=== PATIENT | male | born 1995 | race Caucasian/White ===

== ENCOUNTER 2021-03-19 08:38 | Emergency (ER) | payer OTHER, SELFPAY ==
--- NOTE | ~2021-03-19 | XR_ITS ---
EXAMINATION: XR CHEST CLINICAL INFORMATION: Cough. Covid positive. COMPARISON: October 23, 2019 TECHNIQUE: AP portable view of the chest was obtained. FINDINGS: No significant abnormality is noted involving the heart, lungs, mediastinum, bony thorax or soft tissues. XR/XR chest 1V IMPRESSION: No acute disease.
[2021-03-19 08:45] VITALS: BP 164/88; PULSE 110; RESP 18; TEMP 37.6; O2SAT 97; BMI 28.0
--- NOTE | 2021-03-19 09:57 | ED.ASTHMA ---
HPI - Asthma General Chief Complaint: Dyspnea Stated Complaint: SOB covid+ Time Seen by Provider: 03/19/21 09:07 Source: patient Mode of arrival: ambulatory Limitations: no limitations History of Present Illness HPI Narrative: 25-year-old male with a past medical history of asthma who was recently diagnosed with COVID-19 on 03/17/2021 presenting to the ED with complaints of sore throat, chest congestion, intermittent productive cough and wheezing for the past 2 days. Reports that he is fully vaccinated to the COVID vaccine including his booster. He denies recent travel or sick contacts. He denies any fevers, dizziness, headaches, neck pain/stiffness, trouble swallowing, chest pain, dyspnea on exertion, orthopnea, palpitations, lower extremity edema, nausea/vomiting/diarrhea constipation, abdominal pain, back pain, rashes, dysuria or any other symptoms complaints or concerns at this time. Patient reports he does not have any albuterol inhalers and he does not have a nebulizer at home. MD complaint: asthma attack , shortness of breath and wheezing Onset (ago): day(s) (2) Severity: mild Context: other (Patient diagnosed with COVID on 03/17/2019 ) Associated symptoms: dry cough Asthma History: childhood onset Related Data Current Asthma Therapy: none Previous Rx's Medication Instructions Recorded ketoconazole 2 % topical cream 1 appl TOPICAL DAILY 21 Days #60 g 07/20/20 albuterol sulfate 0.63 mg/3 mL 0.63 mg (3 mL) INHALATION QID PRN 03/19/21 solution for nebulization #75 ml albuterol sulfate 90 mcg/actuation 1 inh INHALATION QID PRN #8.5 g 03/19/21 aerosol inhaler azithromycin 250 mg tablet See Rx Instructions PO .COMPLEX #6 03/19/21 tab codeine 10 mg-guaifenesin 100 mg/5 5 ml PO Q6H PRN #120 ml 03/19/21 mL oral liquid (Guaifenesin AC) nebulizers (AeroEclipse II #1 ea 03/19/21 Nebulizer) prednisone 20 mg tablet 40 mg PO DAILY 5 Days #10 tab 03/19/21 Allergies Allergy/AdvReac Type Severity Reaction Status Date / Time No Known Allergies Allergy Unverified 11/14/19 19:39 [No Known Allergies*] none Allergy Unknown Uncoded 05/28/18 00:00 Review of Systems Review of Systems: Constitutional : denies med noncompliance, no history of PE or DVT, denies recent travel, No Fever, No Chills ENT/Mouth : No Hoarseness, + sore throat, No Rhinorrhea, No Nasal congestion, No Sinus Pressure, No Ear Pain, No stridor, Eyes: No Redness, No Discharge, No Vision Changes Cardiovascular : No Chest Pain, + SOB, No Dyspnea on Exertion, No Edema, no pleurisy, Respiratory : + Cough, + wheezing, No Sputum, no stridor, no hemoptysis, Gastrointestinal : No Nausea, No Vomiting, No Diarrhea, No abdominal Pain Genitourinary : No Dysuria, No Hematuria Musculoskeletal : No joint pain/swelling, No Myalgias Extremities: no extremity swelling /pain Skin : No rash, no itching, no swelling Neuro : No Weakness, No Numbness, No Headache, No Dizziness, No Paresthesias Psych : No anxiety, depression Heme/Lymph: No Bruising, No Bleeding Endocrine : No Polyuria, No Polydipsia Yes all other systems are reviewed and are negative [facility] Past Medical History Attestation statement: The following information was validated with the patient. Medical History Asthma Social History Social History Advance Directives: No Advance Directives Information Provided: No Physical Exam Vital Signs: Vital Signs: Last Vital Signs Temp 99.6 F 03/19/21 08:45 Pulse 110 H 03/19/21 08:45 Resp 18 03/19/21 08:45 BP 164/88 H 03/19/21 08:45 Pulse Ox 97 03/19/21 08:45 BMI result Body Mass Index 28.0 vital signs have been reviewed Blood pressure 164/88. Heart rate 110. Respiration normal. Oxygen saturation normal. Appearance: Alert. Oriented X3. No acute distress. Head: Normal external exam. Normocephalic. Atraumatic. Eyes: PERRLA. EOMI. Conjunctiva and sclera normal. Eyelids normal. ENT: EAC normal. TM's Normal. Pharynx normal. Uvula midline. Moist mucous membranes. No trismus noted. No drooling noted. No muffled voice noted. No stridor noted. Patient tolerating secretions well. Neck: Normal inspection. Neck supple. FROM. No adenopathy. Thyroid Normal. No meningeal signs. No neck mass noted. CVS: Normal heart rate and rhythm. Heart sound normal. Pulses normal throughout. No murmurs/rales/gallops. Respiratory: No respiratory distress. Painless inspiration. Breath sounds normal. No wheezes/rales/rhonchi noted. Chest nontender. No accessory muscle usage noted or decreased air movement noted. Normal chest excursions noted. Abdomen: Soft and nontender. Bowel sounds normal in all 4 quadrants. No distention noted. No organomegaly noted. No visible injury noted. Back: No CVA tenderness. Full range of motion noted. No rashes/lesion/induration/fluctuance or signs of infection noted. Skin: Skin warm and dry. Normal skin color. Normal skin turgor. No rashes/lesions/lacerations noted. Extremities: No lower extremity edema. No calf tenderness noted. Extremities exhibit normal range of motion. Extremities nontender. Neuro: Oriented X 3. No motor deficit. No sensory deficit. Reflexes normal. Normal steady gait. No focal neuro deficits noted. Vascular: + radial pulses/+ 2 distal pedal pulses/+2 dorsalis pedis b/l. Normal cap refill. No cyanosis noted to upper extremity nails and lower extremity toes nails. Course Course Course Narrative: 25-year-old male with a past medical history of asthma who was recently diagnosed with COVID-19 on 03/17/2021 presenting to the ED with complaints of sore throat, chest congestion, intermittent productive cough and wheezing for the past 2 days. Reports that he is fully vaccinated to the COVID vaccine including his booster. Patient reports he does not have any albuterol inhalers and he does not have a nebulizer at home. On exam patient is alert and oriented x3. Mildly tachycardic at 110 otherwise all other vitals are within normal limits saturating at 97% on room air. Lungs clear to auscultation. Abdomen is soft and nontender. No lower extremity edema or calf tenderness is noted. Chest x-ray is negative. Therefore at this time will DC home with symptomatic treatment instructions to follow up with primary care provider and to self isolate per CDC guidelines and to return if any new or worsening symptoms. Patient understands agrees with this plan. [facility] - Asthma Medical Records Attestation: I reviewed the patient's medical records. Imaging Data Chest x-ray: Attestation: I personally reviewed and interpreted this imaging study as follows: Radiologist's impression: FINDINGS: No significant abnormality is noted involving the heart, lungs, mediastinum, bony thorax or soft tissues. XR/XR chest 1V IMPRESSION: No acute disease. Discharge Plan Discharge Clinical Impression: Asthma with exacerbation, COVID-19, Acute bronchitis with bronchospasm Patient Disposition: Home, Self-Care Instructions: Asthma (ED), Acute Bronchitis (ED), COVID-19 (Coronavirus Disease 2019) (ED) Additional Instructions: Please follow CDC guidelines for COVID 19 restrictions Prescriptions: New azithromycin 250 mg tablet See Rx Instructions PO .COMPLEX Qty: 6 RF: 0 prednisone 20 mg tablet 40 mg PO DAILY 5 Days Qty: 10 RF: 0 (DME) AeroEclipse II Nebulizer Misc See Rx Instructions .ROUTE .MEDSUPPLY Qty: 1 RF: 0 albuterol sulfate 0.63 mg/3 mL solution for nebulization 0.63 mg inhalation QID PRN (Reason: shortness of breath or wheezing) Qty: 75 RF: 0 albuterol sulfate 90 mcg/actuation HFA aerosol inhaler 1 inh inhalation QID PRN (Reason: shortness of breath or wheezing) Qty: 8.5 RF: 0 codeine-guaifenesin [Guaifenesin AC] 10-100 mg/5 mL liquid 5 ml PO Q6H PRN (Reason: cold symptoms) Qty: 120 RF: 0 No Action ketoconazole 2 % cream 1 appl topical DAILY 21 Days Qty: 60 RF: 0 Referrals: Physician,Unknown J [Primary Care Provider] - 2 days (your pcp) Stand Alone Forms: Work/School Release Print Language: Cymro
== END 2021-03-19 10:29 | disposition home or self-care (01) ==
PROVIDERS: Emergency Provider Emergency Medicine Emergency Medical Services
DX: U07.1 COVID-19 (principal); J20.9 Acute bronchitis, unspecified; J45.901 Unspecified asthma with (acute) exacerbation
CPT/HCPCS: 71045; 99283

== ENCOUNTER 2021-12-13 09:39 | Outpatient (REF) | payer OTHER, SELFPAY ==
--- NOTE | ~2021-12-13 | XR_ITS ---
EXAMINATION: XR CHEST CLINICAL INFORMATION: Post Covid 19. COMPARISON: Prior chest February 2021 TECHNIQUE: 2 views of the chest were obtained. FINDINGS: No significant abnormality is noted involving the heart, lungs, mediastinum, bony thorax or soft tissues. XR/XR chest 2V IMPRESSION: Unremarkable examination.
== END 2021-12-13 09:40 | disposition home or self-care (01) ==
LOC: HO.HMGCX 09:39
PROVIDERS: Visit Provider Physician Assistant
DX: U09.9 Post COVID-19 condition, unspecified (principal); J45.40 Moderate persistent asthma, uncomplicated
CPT/HCPCS: 71046

== ENCOUNTER → 2021-12-27 14:04 | Outpatient (BNVA) | payer OTHER, SELFPAY | PROVIDERS: PCP Internal Medicine; Visit Provider Internal Medicine Pulmonary Disease | DX: Z91.09 Other allergy status, other than to drugs and biological substances (principal); J45.909 Unspecified asthma, uncomplicated; G47.33 Obstructive sleep apnea (adult) (pediatric); U09.9 Post COVID-19 condition, unspecified | CPT/HCPCS: 99202 ==

== ENCOUNTER → 2022-02-01 12:33 | Outpatient (REF) | payer OTHER, SELFPAY ==
--- NOTE | ~2022-02-01 | CT_ITS ---
EXAMINATION: CT CHEST WITHOUT CONTRAST CLINICAL INFORMATION: Post COVID-19 condition. COMPARISON: None. TECHNIQUE: Multidetector volumetric CT imaging of the chest was done. Axial MIP volume rendering provided. Sagittal and coronal reformatted images were obtained. This CT examination was performed using dose optimization techniques as appropriate, variously including the following: *Automated exposure control *Adjustment of mA and/or kV according to patient size (this includes techniques or standardized protocols for targeted exams where dose is matched to indication/reason for exam; i.e. extremities or head) *Use of iterative reconstruction technique DLP: 207 mGy-cm. FINDINGS: TRANSPORTATION INSPECTOR: Unremarkable. LUNGS: The lungs are well expanded and clear of acute pneumonic process. There is a patchy subpleural opacity in the lingula on sagittal image 21/6. There are no pulmonary nodules, mass, consolidation or ground-glass density. There is no bronchiectasis, bronchial wall thickening or interstitial thickening. MEDIASTINUM: The thyroid lobes are symmetrical and normal. The central trachea and the bronchi widely patent. There is residual thymus seen in the anterior mediastinum. Heart size and the great vessels are normal caliber. There is no pericardial effusion. CORONARY ARTERY CALCIFICATION: None visualized on this study. PLEURA: There is no pleural effusion. No pleural mass or thickening. AXILLA: Small shotty lymph nodes are seen in bilateral axilla. UPPER ABDOMEN: Visualized liver, spleen, pancreas and bilateral adrenal glands are unremarkable. OSSEOUS STRUCTURES: No aggressive lytic or sclerotic process seen. CT/CT chest wo IV con IMPRESSION: Focal atelectatic changes in the lingula. Otherwise unremarkable CT chest exam. Fleischner guidelines were followed.
--- NOTE | 2022-02-01 17:07 | PFT_ITS ---
Forced vital capacity 96%, FEV1 97%, FEV1/FVC ratio is 84, CFV75-91 99%, and MVV 95%. Post bronchodilator therapy, there is no change. Total lung capacity is 93%. Residual volume is 70%. Diffusion capacity is 83% CONCLUSION: Normal pulmonary function test, and there is no evidence of any obstructive or restrictive pulmonary disorder. MD ASTON Wren/JAMIE / [id number]
== END ==
LOC: HO.SL 12:33
PROVIDERS: PCP Internal Medicine; Visit Provider Internal Medicine Pulmonary Disease
DX: G47.33 Obstructive sleep apnea (adult) (pediatric) (principal); U09.9 Post COVID-19 condition, unspecified; J45.909 Unspecified asthma, uncomplicated
CPT/HCPCS: 71250; 94060; 94727; 94729

== ENCOUNTER → 2022-03-24 10:42 | Outpatient (BNVA) | payer OTHER, SELFPAY | PROVIDERS: PCP Internal Medicine; Visit Provider Internal Medicine Pulmonary Disease | DX: J45.909 Unspecified asthma, uncomplicated (principal); Z91.09 Other allergy status, other than to drugs and biological substances | CPT/HCPCS: 99212 ==

== ENCOUNTER 2024-05-15 08:49 | Outpatient (AMB) | payer OTHER, SELFPAY ==
[2024-05-15 09:06] VITALS: BP 138/86; PULSE 114; TEMP 36.8; O2SAT 97; BMI 33.6
--- NOTE | 2024-05-15 09:06 | AM.OFFWIN_ITS ---
Intake Vital Signs 05/15/24 09:06 Height 5 ft 11 in Weight 241 lb 4 oz BMI 33.6 BP 138/86 Blood Pressure Location Lt brachial Position Sitting Pulse 114 H Pulse Source Pulse Oximeter Temp 98.2 F Temp Source Oral Pulse Oximetry (%) 97 Oxygen Delivery Method Room Air Intake Visit Reasons: EP-rt side abd pain Intake Note: Pt presents to the office today for c/o right sided abdominal pain and pressure x1 month and yesterday he had an episode of a 4/10 discomfort pain. Pt denies any uriinary symptoms. Patient Tobacco Use Status: Former Tobacco user Allergies azithromycin Allergy (Intermediate, Verified 05/15/24 09:09) Rash HPI EP-rt side abd pain HPI Details This is a 28-year-old male patient who presents to the walk-in clinic today with a one-month history of right lower abdominal pressure/pain. He states this is persistent, and is typically a 3-4/10 on the pain scale. He denies any vomiting, however occasionally has episodes of nausea. Denies any constipation or diarrhea. Denies any fever or chills. States he has felt mildly lethargic. He states he has also had a mildly productive cough for several months. He reports a slight increase in this pressure sensation after eating, however denies any pain associated with eating fatty/greasy foods. Able to tolerate a normal diet. Dysuria or flank pain. [facility] Medical History Asthma Social History Housing: House Patient Tobacco Use Status: Former Tobacco user e-Cigarette/Vaping Use: Never Used service: No Current occupational status: employed Cognitive needs: No Hearing needs: No Vision needs: No Review of Systems Const All systems reviewed & are unremarkable except as noted in HPI and below Physical Exam Vital Signs: Last Vital Signs Temp 98.2 F 05/15/24 09:06 Pulse 114 H 05/15/24 09:06 BP 138/86 05/15/24 09:06 Pulse Ox 97 05/15/24 09:06 Oxygen Delivery Method Room Air 05/15/24 09:06 BMI result Body Mass Index 33.6 Const General: cooperative, healthy appearing, comfortable and no acute distress Nutritional Appearance: obese Limitations: no limitations HEENT Head: Yes normal to inspection Ears: hearing grossly normal bilaterally Neck Neck: Yes no lymphadenopathy Resp Effort & Inspection: normal respiratory effort Auscultation: clear to auscultation bilaterally Cardio Rate: regular rate Rhythm: regular rhythm Heart sounds: S1 normal heart sound present and S2 normal heart sound present GI Other: no rebound tenderness, negative Leary's Inspection: Yes obesity Palpation (GI): Soft to palpation, Tenderness to palpation present (GI) in the RLQ and No hepatosplenomegaly present Percussion: Yes normal to percussion Auscultation: normal bowel sounds Rectal Exam - Male: Yes deferred General: Yes no CVA tenderness Back/Spine/Pelvis Back: no CVA tenderness Skin General skin exam: no rashes or lesions noted Extrem General: Yes capillary refill normal and Yes no clubbing, cyanosis or edema Psych Appearance: grossly normal Mental Status: mental status grossly normal Speech and movement: Normal speech and movement present Results AMB Urinalysis, Automated UA Leukoctes 0 Jam/uL Last Edit by Prema Cadet CMA on 05/15/24 09:25 UA Nitrite Negative Last Edit by Prema Cadet CMA on 05/15/24 09:25 UA Urobilinogen 0.2 mg/dL Last Edit by Prema Cadet CMA on 05/15/24 09:25 UA Protein 15 mg/dL Last Edit by Prema Cadet CMA on 05/15/24 09:25 UA pH 6.0 Last Edit by Prema Cadet CMA on 05/15/24 09:25 UA Blood 10 [place]/uL Last Edit by Prema Cadet CMA on 05/15/24 09:25 UA Specific [place] 1.020 Last Edit by Prema Cadet CMA on 05/15/24 09:25 UA Ketone Negative Last Edit by Prema Cadet CMA on 05/15/24 09:25 UA Bilirubin 0 mg/dL Last Edit by Prema Cadet CMA on 05/15/24 09:25 UA Glucose 0 mg/dL Last Edit by Prema Cadet CMA on 05/15/24 09:25 Assessment & Plan Assessment & Plan (1) Right lower quadrant abdominal pain: Code(s): R10.31 - Right lower quadrant pain Plan: Patient with a one-month history of dull right lower quadrant pain/pressure. Has an intermittent cough and occasional nausea. He has some mild right lower quadrant tenderness to palpation. Negative Leary's. No rebound TTP. Symptoms could represent a GERD - will try on a short course of omeprazole. Reviewed indications, use with patient. I was able to schedule an appointment with his PCP, Dr. Segura, for this Monday for further workup as needed. We discussed that if he develops any fever or worsening/severe pain, he should go to the ED for evaluation. He agrees to plan. (2) Asthma: Code(s): J45.909 - Unspecified asthma, uncomplicated Qualifiers: Asthma severity: mild Asthma persistence: intermittent Asthma complication type: uncomplicated Qualified Code(s): J45.20 - Mild intermittent asthma, uncomplicated Plan: Patient requested albuterol refill - snet Orders: Orders AMB Urinalysis Automated Today Z13.9 - Encounter for screening, unspecified Medications: New omeprazole Take one capsule daily 10 mg PO DAILY 10 caps 0RF K21.9 - Gastro-esophageal reflux disease without esophagitis Refilled albuterol sulfate 90 mcg/actuation 1 inh inhalation QID PRN 8.5 grams 0RF shortness of breath or wheezing J45.909 - Unspecified asthma, uncomplicated Coding Level of Care Code Est Pt Level 4 (92756) Diagnoses Right lower quadrant abdominal pain R10.31 Mild intermittent asthma without complication J45.20 Asthma severity: mild Asthma persistence: intermittent Asthma complication type: uncomplicated
--- OUTSIDE RECORDS SUMMARY | 2024-05-15 09:42 | XMS_ITS | Encounter Summary ---
Author Organization [facility] Address [address] [place] [id number] Phone Care Team Providers Care Armhole Feller Handstitching Machine Name Role Phone Pranav Orr MD Primary Care Provider [phone] Encounter Details Date Type Department Care Team (Late st Contact Info) Description 08/09/2010 Conversion Encounter [facility] [address] [place] [id number] Social History Tobacco Use Types Packs/Day Years Used Date Smoking Tobacco: Never Assessed Sex and Gender Information Value Date Recorded Sex Assigned at Not on file Legal Sex Male 6:13 PM EDT Gender Identity Not on file Sexual Orientation Not on file documented as of this encounter Plan of Treatment Not on file documented as of this encounter Visit Diagnoses Not on filedocumented in this encounter Care Teams Armhole Feller Handstitching Machine Relationship Specialty Start Date End Date Pranav Orr MD [facility] [address] [place] [id number] PCP - General 07/05/17 documented as of this encounter
--- OUTSIDE RECORDS SUMMARY | 2024-05-15 09:42 | XMS_ITS | Clinical Summary ---
Author Organization [facility] Address [address] [place] [id number] Phone Care Team Providers Care Horticultural Therapist Name Role Phone Pranav Orr MD Primary Care Provider [phone] Immunizations Immunization Administration Dates Next Due DTaP 5 10/31/2002, 0,05/22/1998, 999,01/14/1998 Hep A, ped/adol 03/22/2016,12/22/2014 Hep B, ped/adol 05/22/1998,01/14/1998,1997 Hib (PRP-T) 03/02/1999, 9,03/20/1998, 998 IPV 10/31/2002, 0,03/20/1998, 998 MMR 10/31/2002,11/17/1998 Meningococcal Conj (Menactra) MCV4P 12/22/2014,1 Tdap 12/22/2009 Varicella 12/22/2009,11/17/1998 Social History Tobacco Use Types Packs/Day Years Used Date Smoking Tobacco: Never Comments:Never Smoker Sex and Gender Information Value Date Recorded Sex Assigned at Not on file Legal Sex Male 6:13 PM EDT Gender Identity Not on file Sexual Orientation Not on file Last Filed Vital Signs Vital Sign Reading Time Taken Comments Blood Pressure - - Pulse 80 02/28/2017 2:48 PM EST Temperature 37.3 ??C (99.2 ??F) 06/29/2017 1:41 PM ED T Respiratory Rate - - Oxygen Saturation 99% 05/26/2014 1:59 PM EDT Inhaled Oxygen Concentration - - Weight 68.9 kg (151 lb 14.4 oz) 06/29/2017 1:41 PM EDT Height 180.3 cm (5' 11 ) 06/29/2017 1:41 PM EDT Body Mass Index 21.19 06/29/2017 1:41 PM EDT Plan of Treatment Health Maintenance Due Date Last Done Comments HPV Vaccines (1 - Male 3-dose series) 2012 DTaP,Tdap,and Td Vaccines (7 - Td or Tdap) 12/23/2019 12/22/2009, 10/31/2002, 06/02/1999, Additional history exists Influenza Vaccines (#1) 2023 COVID-19 Vaccine ( - season) 2023 Hepatitis B Vaccines Completed 05/22/1998, 01/14/1998, 1997 HIB Vaccines Completed 03/02/1999, 04/28, 03/20/1998, Additional history exists IPV Vaccines Completed 10/31/2002, 06/1999, 03/20/1998, Additional history exists MMR Vaccines Completed 10/31/2002, 11/17/1998 Varicella Vaccines Completed 12/22/2009, 11/17/1998 Meningococcal Vaccine Completed 12/22/2014, 010 Hepatitis A Vaccines Completed 03/22/2016, 12/23/19 15 Men B Vaccine Aged Out No longer elig ible based on patient's age to complete this topic Pneumococcal Vaccine Aged Out No long er eligible based on patient's age to complete this topic Insurance [facility] OTHER O [facility] Care Teams Horticultural Therapist Relationship Specialty Start Date End Date Pranav Orr MD [address] [place] [address] [place] [address] PCP - General 07/05/17
== END 2024-05-15 09:47 | disposition home or self-care (01) ==
PROVIDERS: PCP Internal Medicine; Visit Provider Nurse Practitioner Family
DX: R10.31 Right lower quadrant pain (principal); J45.20 Mild intermittent asthma, uncomplicated; Z13.9 Encounter for screening, unspecified

== ENCOUNTER → 2024-05-15 08:49 | Outpatient (BNVA) | payer OTHER, SELFPAY | PROVIDERS: PCP Internal Medicine; Visit Provider Nurse Practitioner Family | DX: R10.31 Right lower quadrant pain (principal); J45.20 Mild intermittent asthma, uncomplicated | CPT/HCPCS: 81003 ==

== ENCOUNTER 2024-05-17 15:38 | Outpatient (AMB) | payer OTHER, SELFPAY ==
[2024-05-17 15:43] VITALS: BP 138/82; PULSE 112; O2SAT 98; BMI 33.8
--- NOTE | 2024-05-17 15:43 | MHC.PC.OV ---
Vital Signs 05/17/24 15:43 Height 5 ft 11 in Weight 242 lb 8 oz BMI 33.8 BP 138/82 Blood Pressure Location Lt brachial Position Sitting Pulse 112 H Pulse Source Pulse Oximeter Pulse Oximetry (%) 98 Oxygen Delivery Method Room Air Intake Visit Reasons: Walk In [facility] 05/15 Allergies azithromycin Allergy (Intermediate, Verified 05/17/24 15:43) Rash Medication List - Last Reconciled 05/17/24 by Bao Segura MD albuterol sulfate 90 mcg/actuation 1 inh inhalation QID PRN omeprazole 10 mg PO DAILY Tobacco use date assessed: 05/17/24 Dental Screening Dental Screen Date: 05/17/24 Did you have a dental problem in the last 6 months where you did not have access to dental care?: No HPI Walk In [facility] 05/15 HPI Details History - The patient is a 28-year-old male presenting with right upper abdominal pressure and pain. - Symptoms initiated approximately three days ago, characterized by intermittent pressure and occasional pain in the right lower quadrant. - Discomfort tends to increase as the day progresses and is aggravated by sitting in certain positions. - Larger meal consumption seems to exacerbate the pain, though no consistent pattern with eating times is identified. - Currently prescribed omeprazole for suspected GERD through urgent care patient presented with coughing He has a history of asthma as well and currently taking albuterol inhaler only but reports no change in abdominal symptoms since starting the omeprazole. - Has a significant family history of gallbladder disease. Problem List - Asthma - Gastroesophageal Reflux Disease (GERD) - obesity with BMI of 33.8 Patient Instructions - Avoid consuming fatty foods. - Complete the fasting blood test as instructed at the laboratory next door. - Schedule a follow-up appointment for a physical examination in two to three weeks. - Be attentive to any new or worsening symptoms and seek care as needed. Review of Systems - General: No fever no chills - Neurological: No headaches no dizziness - Ear nose throat: No sore throat no hearing difficulty no ear pain - Cardiovascular: No syncope, no chest pain, no palpitations - Gastrointestinal: No nausea vomiting or diarrhea - Endocrine: No polyuria polydipsia no heat intolerance - Genitourinary: No dysuria , no blood in urine Physical Exam General: No acute distress HEENT: No acute findings Neck: Supple Respiratory system: Able to talk in full sentences, no audible wheeze cardiovascular: S1-S2 regular in rate and rhythm Gastrointestinal: Right upper abdominal discomfort with deep pressure, no guarding no rebound Extremities: No new findings EXCELSIOR PICKER: Alert awake oriented x3 motor sensory intact Skin: Normal turgor [facility] Medical History Asthma Social History Housing: House Patient Tobacco Use Status: Former Tobacco user e-Cigarette/Vaping Use: Never Used service: No Current occupational status: employed Cognitive needs: No Hearing needs: No Vision needs: No Questionnaire PHQ-9 Over the last 2 weeks, how often have you been bothered by any of the following problems? 1. Little interest or pleasure in doing things: not at all 2. Feeling down, depressed, or hopeless: not at all 3. Trouble falling or staying asleep, or sleeping too much: not at all 4. Feeling tired or having little energy: several days 5. Poor appetite or overeating: not at all 6. Feeling bad about yourself - or that you are a failure or have let yourself or your family down: not at all 7. Trouble concentrating on things, such as reading the newspaper or watching television: not at all 8. Moving or speaking so slowly that other people could have noticed. Or the opposite - being so fidgety or restless that you have been moving around a lot more than usual: not at all 9. Thoughts that you would be better off or of hurting yourself in some way: not at all Total score: 1 Depression Screening Interpretation: Negative Depression Screening Done: Yes 02628 - PHQ-9 Billing: Yes Source: Developed by Drs. Bi Chan, Tressa Johsi, Charles Camargo and colleagues, with an educational gianluca from [employer]. Thrive Questionnaire Date Thrive assessed: 05/17/24 I am a: Patient What is your living situation today?: I have a steady place to live Within the past 12 months, did the food you bought not last and you didn't have the money to get more?: Never true Within the past 12 months, did you worry whether your food would run out before you got money to buy more?: Never true Do you have trouble paying for medicines?: No Do you have trouble getting transportation to medical appointments?: No Do you have trouble paying your heating and electricity bill?: No Do you have trouble taking care of your child, family member or friend?: No Do you have trouble with day-to-day activities such as bathing, preparing meals, shopping, managing finances, etc.?: No Are you currently unemployed and looking for a job?: No Are you interested in more education?: I choose not to answer this question Please select the resources that you would like help with: None Currently or been in a relationship where the following occur: No concerns reported THRIVE Score: 0 AUDIT C Alcohol Use Questionnaire (AUDIT-C) 1. How often do you have a drink containing alcohol?: Monthly or less 2. How many drinks containing alcohol do you have on a typical day when you are drinking?: 3 or 4 3. How often do you have six or more drinks on one occasion?: Never Total Score: 2 Score Reviewed/Action Taken: Yes JOVANNY-7 AMB Questionnaire JOVANNY-7 Date JOVANYN - 7 assessed: 05/17/24 Feeling nervous, anxious, or on edge: 0 = Not at all Not being able to stop or control worryin = Not at all Worrying too much about different things: 0 = Not at all Trouble relaxin = Not at all Being so restless that it is hard to sit still: 0 = Not at all Becoming easily annoyed or irritable: 0 = Not at all Feeling afraid as if something awful might happen: 0 = Not at all Total JOVANNY-7 score (0-4 normal; 5-9 mild; 10-14 moderate; 15-21 severe): 0 Source: Developed by Drs. Bi Chan, Tressa Joshi, Charles Camargo and colleagues, with an educational gianluca from [employer]. JOVANNY-7 Assessment Billing JOVANNY-7 Assessment Tool: JOVANNY-7 Assessment 46316 Physical exam (Primary Care) Vital Signs: Last Vital Signs Pulse 112 H 05/17/24 15:43 BP 138/82 05/17/24 15:43 Pulse Ox 98 05/17/24 15:43 Oxygen Delivery Method Room Air 05/17/24 15:43 BMI result Body Mass Index 33.8 Tobacco/Smoking Status: Tobacco use Status Tobacco use date assessed 05/17/24 05/17/24 15:46 Patient Tobacco Use Status Former Tobacco user 05/17/24 15:46 e-Cigarette/Vaping Use Never Used 05/17/24 15:46 PHQ-9: PHQ-9 Score PHQ-9: Total score 1 05/17/24 15:46 Depression Screening Interpretation: Negative Thrive Assessment: Date of Thrive Assessment Date Thrive assessed 05/17/24 05/17/24 15:46 Currently or been in a relationship where the following occur: No concerns reported Coding Level of Care Code Est Pt Level 4 (72937) Diagnoses Right upper quadrant pain R10.11 Mild intermittent asthma without complication J45.20 Asthma severity: mild Asthma complication type: uncomplicated Class 1 obesity due to excess calories without serious comorbidity with body mass index (BMI) of 33.0 to 33.9 in adult E66.811; E66.09; Z68.33 Obesity classification: adult class 1 (BMI 30 - 34.9) Serious obesity comorbidity presence: without serious comorbidity Body mass index: BMI 33.0-33.9 Additional Codes JOVANNY-7 Assessment Billing - JOVANNY-7 Assessment Tool: JOVANNY-7 Assessment 53505 ([id number]) PHQ-9 - 93047 - PHQ-9 Billing: Yes ([id number]) Assessment & Plan Assessment & Plan (1) Right upper quadrant pain: Code(s): R10.11 - Right upper quadrant pain Category: Medical (2) Asthma, intermittent: Code(s): J45.20 - Mild intermittent asthma, uncomplicated Category: Medical Qualifiers: Asthma severity: mild Asthma complication type: uncomplicated Qualified Code(s): J45.20 - Mild intermittent asthma, uncomplicated (3) Obesity due to excess calories: Code(s): E66.09 - Other obesity due to excess calories Category: Medical Qualifiers: Obesity classification: adult class 1 (BMI 30 - 34.9) Serious obesity comorbidity presence: without serious comorbidity Body mass index: BMI 33.0-33.9 Qualified Code(s): E66.811 - Obesity, class 1; E66.09 - Other obesity due to excess calories; Z68.33 - Body mass index [BMI] 33.0-33.9, adult Plan History - The patient is a 28-year-old male presenting with right upper abdominal pressure and pain. - Symptoms initiated approximately three days ago, characterized by intermittent pressure and occasional pain in the right lower quadrant. - Discomfort tends to increase as the day progresses and is aggravated by sitting in certain positions. - Larger meal consumption seems to exacerbate the pain, though no consistent pattern with eating times is identified. - Currently prescribed omeprazole for suspected GERD through urgent care patient presented with coughing He has a history of asthma as well and currently taking albuterol inhaler only but reports no change in abdominal symptoms since starting the omeprazole. - Has a significant family history of gallbladder disease. Problem List - Asthma - Gastroesophageal Reflux Disease (GERD) - obesity with BMI of 33.8 Patient Instructions - Avoid consuming fatty foods. - Complete the fasting blood test as instructed at the laboratory next door. - Schedule a follow-up appointment for a physical examination in two to three weeks. - Be attentive to any new or worsening symptoms and seek care as needed. Orders: Orders Lipid Panel Today E66.09 - Other obesity due to excess calories, E66.811 - Obesity, class 1, J45.20 - Mild intermittent asthma, uncomplicated, R10.11 - Right upper quadrant pain, Z68.33 - Body mass index [BMI] 33.0-33.9, adult US abdomen complete Today R10.11 - Right upper quadrant pain Complete Blood Count Auto Diff Today E66.09 - Other obesity due to excess calories, E66.811 - Obesity, class 1, J45.20 - Mild intermittent asthma, uncomplicated, R10.11 - Right upper quadrant pain, Z68.33 - Body mass index [BMI] 33.0-33.9, adult Comprehensive [place]. Panel Fast Today E66.09 - Other obesity due to excess calories, E66.811 - Obesity, class 1, J45.20 - Mild intermittent asthma, uncomplicated, R10.11 - Right upper quadrant pain, Z68.33 - Body mass index [BMI] 33.0-33.9, adult TSH reflex Free T4 Today E66.09 - Other obesity due to excess calories, E66.811 - Obesity, class 1, J45.20 - Mild intermittent asthma, uncomplicated, R10.11 - Right upper quadrant pain, Z68.33 - Body mass index [BMI] 33.0-33.9, adult
--- OUTSIDE RECORDS SUMMARY | 2024-05-17 17:24 | XMS_ITS | Encounter Summary ---
Author Organization [facility] Address [address] [place] [address] Phone Care Team Providers Care Kitchen Clerk Name Role Phone Pranav Orr MD Primary Care Provider [phone] Encounter Details Date Type Department Care Team (Late st Contact Info) Description 08/09/2010 Conversion Encounter [facility] [address] [place] [id number] Social History Tobacco Use Types Packs/Day Years [...] on filedocumented in this encounter Care Teams Kitchen Clerk Relationship Specialty Start Date End Date Pranav Orr MD [facility] [address] [place] [address] PCP - General 07/05/17 documented as of this encounter
--- OUTSIDE RECORDS SUMMARY | 2024-05-17 17:24 | XMS_ITS | Clinical Summary ---
Author Organization [facility] Address [address] [place] [address] Phone Care Team Providers Care Cream Cheese Maker Name Role Phone Pranav Orr MD Primary Care Provider [phone] Immunizations Immunization Administration Dates Next Due DTaP [...] patient's age to complete this topic Insurance [facility] OTHER O [facility] Care Teams Cream Cheese Maker Relationship Specialty Start Date End Date Pranav Orr MD [address] [place] [address] [place] [address] PCP - General 07/05/17
== END 2024-05-17 16:02 | disposition home or self-care (01) ==
LOC: HO.HMCC 15:39
PROVIDERS: PCP Internal Medicine; Visit Provider Internal Medicine
DX: R10.11 Right upper quadrant pain (principal); J45.20 Mild intermittent asthma, uncomplicated; E66.811 Obesity, class 1; E66.09 Other obesity due to excess calories; Z68.33 Body mass index [BMI] 33.0-33.9, adult

== ENCOUNTER → 2024-05-17 15:38 | Outpatient (BNVA) | payer OTHER, SELFPAY | PROVIDERS: PCP Internal Medicine; Visit Provider Internal Medicine | DX: R10.11 Right upper quadrant pain (principal); J45.20 Mild intermittent asthma, uncomplicated; E66.811 Obesity, class 1; E66.09 Other obesity due to excess calories; Z68.33 Body mass index [BMI] 33.0-33.9, adult | CPT/HCPCS: 96127 ==

== ENCOUNTER 2024-05-25 11:04 | Outpatient (REF) | payer OTHER, SELFPAY ==
[2024-05-25 13:34] LABS: MANUAL DIFF FLAG NO
[2024-05-25 13:42] LABS: Basophils Percent Auto 0.2 % (0-2); Eosinophils Absolute Auto 0.1 X10*3/uL (0.0-0.4); Eosinophils Percent Auto 1.6 % (0-4); Hematocrit 44.8 % (42.0-52.0); Hemoglobin 15.5 g/dl (14.0-18.0); Imm Gran Abs Auto 0.03 X10*3/uL (0.00-0.03); Imm Gran Pct Auto 0.4 % (0.0-0.4); Lymphocytes Absolute Auto 3.2 X10*3/uL (1.2-4.9); Lymphocytes Percent Auto 39.1 % (20-40); Mean Corpuscular HGB Conc 34.6 g/dl (31.0-36.0); Mean Corpuscular Hemoglobin 30.7 pg (27.0-33.0); Mean Corpuscular Volume 88.7 fL (80.0-98.0); Mean Platelet Volume 9.6 fL (9.4-12.4); Monocytes Absolute Auto 0.6 X10*3/uL (0.1-1.2); Monocytes Percent Auto 7.3 % (2-11); Neutrophils Absolute Auto 4.1 x10*3/uL (2.0-8.3); Neutrophils Percent Auto 51.4 % (45-73); Platelet Count 297 X10*3/uL (160-400); Red Blood Count 5.05 X10*6/uL (4.60-5.80); Red Cell Distribution Width 12.9 % (11.0-16.0); White Blood Count 8.1 X10*3/uL (4.8-10.8)
[2024-05-25 14:13] LABS: Alanine Aminotransferase 69 U/L (0-40); Albumin Level 4.5 g/dL (3.5-5.0); Alkaline Phosphatase 52 U/L (39-117); Anion Gap 12 (12-20); Aspartate Amino Transferase 36 U/L (5-37); Bilirubin Total 0.4 mg/dL (0.0-1.0); Blood Urea Nitrogen 15 mg/dL (9-16); Calcium 9.2 mg/dL (8.4-10.2); Carbon Dioxide 24 mmol/L (22-29); Chloride 108 mmol/L (96-108); Cholesterol 177 mg/dL (<200); Estimated Glomerular Filt Rate > 60; Glucose Fasting 95 mg/dL (60-99); HDL Cholesterol 42 mg/dL (>40); LDL Cholesterol Calculated 101 mg/dL (<100); Potassium 4.1 mmol/L (3.3-5.1); Sodium 140 mmol/L (135-145); Total Protein 7.4 g/dL (6.5-8.0); Triglycerides 172 mg/dL (<150)
[2024-05-25 14:20] LABS: TSH reflex Free T4 0.96 uIU/mL (0.32-4.0)
== END 2024-05-25 11:05 | disposition home or self-care (01) ==
LOC: HO.HMGCLDS 11:04
PROVIDERS: PCP Internal Medicine; Visit Provider Internal Medicine
DX: J45.20 Mild intermittent asthma, uncomplicated (principal); R10.11 Right upper quadrant pain; E66.811 Obesity, class 1; E66.09 Other obesity due to excess calories; Z68.33 Body mass index [BMI] 33.0-33.9, adult
CPT/HCPCS: 36415; 80053; 80061; 84443; 85025

== ENCOUNTER 2024-05-31 14:52 | Outpatient (AMB) | payer OTHER, SELFPAY ==
[2024-05-31 14:55] VITALS: BP 138/88; PULSE 99; O2SAT 98; BMI 33.5
--- NOTE | 2024-05-31 14:55 | A.OFFPC_ITS ---
Vital Signs 05/31/24 14:55 Height 5 ft 11 in Weight 240 lb BMI 33.5 BP 138/88 Blood Pressure Location Rt brachial Position Sitting Pulse 99 Pulse Source Pulse Oximeter Pulse Oximetry (%) 98 Oxygen Delivery Method Room Air Intake Visit Reasons: 2 weeks f/up Allergies azithromycin Allergy (Intermediate, Verified 05/31/24 14:55) Rash Medication List - Last Reconciled 05/31/24 by Bao Segura MD albuterol sulfate 90 mcg/actuation 1 inh inhalation QID PRN omeprazole 10 mg PO DAILY Tobacco use date assessed: 05/31/24 Dental Screening Dental Screen Date: 05/31/24 Did you have a dental visit in the last 12 months?: Yes Did you have a dental problem in the last 6 months where you did not have access to dental care?: No Was dental information given to patient?: Patient has dentist HPI 2 weeks f/up HPI Details History - The patient is a 28-year-old male pres enting with gastrointestinal symptoms and elevated liver enzymes. - The patient recently discontinued caff eine and increased fluid intake, feeling better . - Omeprazole is being taken as a treatme nt for the patient's GERD. - The patient reports a sensation of abd ominal pressure in the hepatic region without pain. - Alcohol consumption is is there , limi patti to monthly intake of two to three mixed drinks, such as whiskey or vodka. Problem List - Elevated Liver Enzymes - Gastroesophageal Reflux Disease (GERD) Patient Instructions - Continue using omeprazole as directed, with a refill provided for at least the next three months. - Maintain current hydration levels and avoid caffeine consumption. - Curtail intake of hard liquor; conside r substituting with beer if possible. - Await contact for scheduling of an abd ominal ultrasound to further investigate liver enzyme levels. - Report any new or worsening symptoms, especially related to abdominal pain. Review of Systems - General: No fever no chills - Neurological: No headaches no dizziness - Ear nose throat: No sore throat no hearing difficulty no ear pain - Cardiovascular: No syncope, no chest pain, no palpitations - Gastrointestinal: No nausea vomiting or diarrhea - Endocrine: No polyuria polydipsia no heat intolerance - Genitourinary: No dysuria , no blood in urine Physical Exam General: No acute distress HEENT: No acute findings Neck: Supple Respiratory system: Able to talk in full sentences, no audible wheeze Cardiovascular: S1-S2 regular in rate and rhythm Gastrointestinal: No pain, just pressure in the liver area Extremities: No new findings CAR PARK ATTENDANT: Alert awake oriented x3 motor sensory intact Skin: Normal turgor [facility] Medical History Asthma Social History Housing: House Patient Tobacco Use Status: Former Tobacco user e-Cigarette/Vaping Use: Never Used service: No Current occupational status: employed Cognitive needs: No Hearing needs: No Vision needs: No Questionnaire Thrive Questionnaire Date Thrive assessed: 05/15/24 I am a: Patient What is your living situation today?: I have a steady place to live Within the past 12 months, did the food you bought not last and you didn't have the money to get more?: Never true Within the past 12 months, did you worry whether your food would run out before you got money to buy more?: Never true Do you have trouble paying for medicines?: No Do you have trouble getting transportation to medical appointments?: No Do you have trouble paying your heating and electricity bill?: No Do you have trouble taking care of your child, family member or friend?: No Do you have trouble with day-to-day activities such as bathing, preparing meals, shopping, managing finances, etc.?: No Are you currently unemployed and looking for a job?: No Are you interested in more education?: I choose not to answer this question Please select the resources that you would like help with: None Currently or been in a relationship where the following occur: No concerns reported THRIVE Score: 0 AUDIT C Alcohol Use Questionnaire (AUDIT-C) 1. How often do you have a drink containing alcohol?: Monthly or less 2. How many drinks containing alcohol do you have on a typical day when you are drinking?: 3 or 4 3. How often do you have six or more drinks on one occasion?: Never Total Score: 2 Score Reviewed/Action Taken: Yes JOVANNY-7 AMB Questionnaire JOVANNY-7 Date JOVANNY - 7 assessed: 05/17/24 Source: Developed by Drs. Bi Chan, Tressa Joshi, Charles Camargo and colleagues, with an educational gianluca from [employer]. Physical exam (Primary Care) Vital Signs: Last Vital Signs Pulse 99 05/31/24 14:55 BP 138/88 05/31/24 14:55 Pulse Ox 98 05/31/24 14:55 Oxygen Delivery Method Room Air 05/31/24 14:55 BMI result Body Mass Index 33.5 Tobacco/Smoking Status: Tobacco use Status Tobacco use date assessed 05/31/24 05/31/24 14:57 Patient Tobacco Use Status Former Tobacco user 05/31/24 14:57 e-Cigarette/Vaping Use Never Used 05/31/24 14:57 Thrive Assessment: Date of Thrive Assessment Date Thrive assessed 05/15/24 05/31/24 14:57 Currently or been in a relationship where the following occur: No concerns reported Coding Level of Care Code Est Pt Level 3 (99981) Diagnoses Right upper quadrant pain R10.11 LFT elevation R79.89 Assessment & Plan Assessment & Plan (1) Right upper quadrant pain: Code(s): R10.11 - Right upper quadrant pain Category: Medical (2) LFT elevation: Code(s): R79.89 - Other specified abnormal findings of blood chemistry Category: Medical Plan History - The patient is a 28-year-old male presenting with gastrointestinal symptoms and elevated liver enzymes. - The patient recently discontinued caffeine and increased fluid intake, feeling better . - Omeprazole is being taken as a treatment for the patient's GERD. - The patient reports a sensation of abdominal pressure in the hepatic region without pain. - Alcohol consumption is is there , limited to monthly intake of two to three mixed drinks, such as whiskey or vodka. Problem List - Elevated Liver Enzymes - Gastroesophageal Reflux Disease (GERD) Patient Instructions - Continue using omeprazole as directed, with a refill provided for at least the next three months. - Maintain current hydration levels and avoid caffeine consumption. - Curtail intake of hard liquor; consider substituting with beer if possible. - Await contact for scheduling of an abdominal ultrasound to further investigate liver enzyme levels. - Report any new or worsening symptoms, especially related to abdominal pain. Medications: Changed From omeprazole Take one capsule daily 10 mg PO DAILY 10 caps 0RF K21.9 - Gastro-esophageal reflux disease without esophagitis To omeprazole Take one capsule daily 20 mg PO ONCE 90 caps 0RF K21.9 - Gastro-esophageal reflux disease without esophagitis
--- OUTSIDE RECORDS SUMMARY | 2024-05-31 16:21 | XMS_ITS | Encounter Summary ---
Author Organization [facility] Address [address] [place] [address] Phone Care Team Providers Care Produce Associate Name Role Phone Pranav Orr MD Primary Care Provider [phone] Encounter Details Date Type Department Care Team (Late st Contact Info) Description 08/09/2010 Conversion Encounter [facility] [address] [place] [address] Social History Tobacco Use Types Packs/Day Years [...] on filedocumented in this encounter Care Teams Produce Associate Relationship Specialty Start Date End Date Pranav Orr MD [facility] [address] [place] [address] PCP - General 07/05/17 documented as of this encounter
--- OUTSIDE RECORDS SUMMARY | 2024-05-31 16:21 | XMS_ITS | Clinical Summary ---
Author Organization [facility] Address [address] [place] [address] Phone Care Team Providers Care Power Electronics Engineer Name Role Phone Pranav Orr MD Primary Care Provider Immunizations Immunization Administration Dates Next Due DTaP [...] patient's age to complete this topic Insurance [facility] OTHER [facility] Care Teams Power Electronics Engineer Relationship Specialty Start Date End Date Pranav Orr MD [address] [place] [address] [place] [address] PCP - General 07/05/17
== END 2024-05-31 15:35 | disposition home or self-care (01) ==
LOC: HO.HMCC 14:53
PROVIDERS: PCP Internal Medicine; Visit Provider Internal Medicine
DX: R10.11 Right upper quadrant pain (principal); R79.89 Other specified abnormal findings of blood chemistry

== ENCOUNTER 2024-07-05 08:47 | Outpatient (REF) | payer OTHER, SELFPAY ==
--- NOTE | ~2024-07-05 | US_ITS ---
EXAMINATION: US ABDOMEN HISTORY: R10.31 - Right upper quadrant pain TECHNIQUE: Real-time grayscale ultrasound imaging of the abdomen was performed and images were reviewed. COMPARISON: There are no prior studies for comparison. FINDINGS: Liver: The right lobe of the liver measures 15.6 cm in size. The left lobe of the liver measures 9.0 cm in size. The liver demonstrates increased echotexture, consistent with steatosis. No focal mass or intrahepatic biliary ductal dilatation is identified. There is normal hepatopedal flow in the portal vein. Gallbladder and biliary tree: The gallbladder is unremarkable, without evidence of calculi, wall thickening, or pericholecystic fluid. There is no sonographic Leary sign. The common bile duct is normal in caliber measuring 4 mm. Kidneys: Right kidney measures 10.8 cm in length. The left kidney measures 11.8 cm in length. The kidneys are unremarkable, without evidence of masses, hydronephrosis, or calculi. Pancreas: The pancreatic head, neck, and body are unremarkable. The pancreatic tail is obscured by bowel gas. Spleen: The spleen is normal in size and contour, measuring 11.1 cm in length. Abdominal aorta and inferior vena cava: The visualized portions of the abdominal aorta and inferior vena cava are normal in caliber. There is no free fluid in the abdomen. US/US abdomen complete IMPRESSION: Hepatic steatosis. Otherwise unremarkable abdominal ultrasound. Electronically signed by: Bi Blanco MD 07/05/2024 09:42 AM EDT
--- OUTSIDE RECORDS SUMMARY | 2024-07-05 08:59 | XMS_ITS | Encounter Summary ---
Author Organization [facility] Address [address] [place] [address] Phone Care Team Providers Care Commissions Coordinator Name Role Phone Pranav Orr MD Primary Care Provider [phone] Encounter Details Date Type Department Care Team (Late st Contact Info) Description 08/09/2010 Conversion Encounter [facility] Dr [place] [address] Social History Tobacco Use Types Packs/Day Years [...] on filedocumented in this encounter Care Teams Commissions Coordinator Relationship Specialty Start Date End Date Pranav Orr MD [facility] [address] [place] [address] PCP - General 07/05/17 documented as of this encounter
--- OUTSIDE RECORDS SUMMARY | 2024-07-05 08:59 | XMS_ITS | Clinical Summary ---
Author Organization [facility] Address [address] [place] [phone] Phone Care Team Providers Care Car Inspection And Repair Manager Name Role Phone Pranav Orr MD Primary [...] patient's age to complete this topic Insurance [facility] OTHER O [facility] Care Teams Car Inspection And Repair Manager Relationship Specialty Start Date End Date Pranav Orr MD [address] [place] [address] [place] [address] PCP - General 07/05/17
== END 2024-07-05 08:48 | disposition home or self-care (01) ==
LOC: HO.HMGCX 08:47
PROVIDERS: PCP Internal Medicine; Visit Provider Internal Medicine
DX: R10.11 Right upper quadrant pain (principal); R10.31 Right lower quadrant pain
CPT/HCPCS: 76700

== ENCOUNTER → 2024-07-05 08:53 | Outpatient (BNV) | payer OTHER, SELFPAY | PROVIDERS: PCP Internal Medicine; Visit Provider Radiology Diagnostic Radiology | DX: K76.0 Fatty (change of) liver, not elsewhere classified (principal) | CPT/HCPCS: 76700 ==

== ENCOUNTER 2024-07-11 08:18 | Outpatient (AMB) | payer OTHER, SELFPAY ==
--- OUTSIDE RECORDS SUMMARY | 2024-07-11 08:33 | XMS_ITS | Clinical Summary ---
Author Organization [facility] Address [address] [place] [phone] Phone Care Team Providers Care Educational Program Director Name Role Phone Pranav Orr MD Primary Care Provider [phone] Immunizations Immunization Administration Dates Next Due DTaP [...] patient's age to complete this topic Insurance [facility] OTHER [facility] Care Teams Educational Program Director Relationship Specialty Start Date End Date Pranav Orr MD [address] [place] [address] [place] [address] PCP - General 07/05/17
--- OUTSIDE RECORDS SUMMARY | 2024-07-11 08:33 | XMS_ITS | Encounter Summary ---
Author Organization [facility] Address [address] [place] [id number] Phone Care Team Providers Care Neurology Nurse Name Role Phone Pranav Orr MD Primary Care Provider [phone] Encounter Details Date Type Department Care Team (Late st Contact Info) Description 08/09/2010 Conversion Encounter [facility] [address] [place] [id number] Social History Tobacco Use Types Packs/Day Years [...] on filedocumented in this encounter Care Teams Neurology Nurse Relationship Specialty Start Date End Date Pranav Orr MD [facility] [address] [place] [id number] PCP - General 07/05/17 documented as of this encounter
--- NOTE | 2024-07-11 08:51 | MHC.PC.OV ---
Intake Visit Reasons: Discuss US Report Allergies azithromycin Allergy (Intermediate, Verified 07/11/24 08:52) Rash Medication List - Last Reconciled 07/11/24 by Bao Segura MD albuterol sulfate 90 mcg/actuation 1 inh inhalation QID PRN Tobacco use date assessed: 07/11/24 Dental Screening Dental Screen Date: 07/11/24 Did you have a dental visit in the last 12 months?: Yes Did you have a dental problem in the last 6 months where you did not have access to dental care?: No Was dental information given to patient?: Patient has dentist HPI Discuss US Report HPI Details History - The patient is a 28-year-old male presenting with discomfort in the upper abdomen. - The discomfort was reportedly resolved after the patient ceased consuming dairy products, which suggests lactose intolerance. - The patient had been taking omeprazole previously but discontinued its use. - An ultrasound of the liver indicated a significant accumulation of fat, consistent with hepatic steatosis (fatty liver). - The patient has made significant dietary modifications within the last week, aiming to improve liver health and overall diet quality. Problem List - Lactose Intolerance - Hepatic Steatosis (Fatty Liver) Patient Instructions - Maintain a healthy diet and continue avoiding dairy products to manage lactose intolerance. - Monitor liver health with annual check-ups and blood tests as part of a routine physical examination. [facility] Medical History Asthma Social History Housing: House Patient Tobacco Use Status: Former Tobacco user e-Cigarette/Vaping Use: Never Used service: No Current occupational status: employed Cognitive needs: No Hearing needs: No Vision needs: No Questionnaire Thrive Questionnaire Date Thrive assessed: 05/15/24 AUDIT C Alcohol Use Questionnaire (AUDIT-C) 1. How often do you have a drink containing alcohol?: Monthly or less 2. How many drinks containing alcohol do you have on a typical day when you are drinking?: 3 or 4 3. How often do you have six or more drinks on one occasion?: Never Total Score: 2 Score Reviewed/Action Taken: Yes JOVANNY-7 AMB Questionnaire JOVANNY-7 Date JOVANNY - 7 assessed: 05/17/24 Source: Developed by Drs. Bi Chan, Tressa B.Charles Jamil and colleagues, with an educational gianluca from [employer]. Review of Systems Const Details: Negative except as listed in HPI Physical exam (Primary Care) Tobacco/Smoking Status: Tobacco use Status Tobacco use date assessed 07/11/24 07/11/24 08:53 Patient Tobacco Use Status Former Tobacco user 07/11/24 08:53 e-Cigarette/Vaping Use Never Used 07/11/24 08:53 Thrive Assessment: Date of Thrive Assessment Date Thrive assessed 05/15/24 07/11/24 08:53 Telehealth Telehealth Telehealth Platform: [email or web address] Location of provider rendering services: practice address Location of patient: address on file Patient Identification confirmed using: Name, : Yes Telehealth method: voice only Patient verbally consented to treatment: Yes Patient verbally consented to billing insurance company: Yes Patient informed of any privacy concerns related to visit: Yes Minutes spent on Phone/Video with Pt.: 11 Coding Level of Care Code Tele Est Pt Level 3 (38876) Diagnoses Lactose intolerance E73.9 Fatty liver K76.0 Assessment & Plan Assessment & Plan (1) Lactose intolerance: Code(s): E73.9 - Lactose intolerance, unspecified Category: Medical (2) Fatty liver: Code(s): K76.0 - Fatty (change of) liver, not elsewhere classified Category: Medical Plan History - The patient is a 28-year-old male presenting with discomfort in the upper abdomen. - The discomfort was reportedly resolved after the patient ceased consuming dairy products, which suggests lactose intolerance. - The patient had been taking omeprazole previously but discontinued its use. - An ultrasound of the liver indicated a significant accumulation of fat, consistent with hepatic steatosis (fatty liver). - The patient has made significant dietary modifications within the last week, aiming to improve liver health and overall diet quality. Problem List - Lactose Intolerance - Hepatic Steatosis (Fatty Liver) Patient Instructions - Maintain a healthy diet and continue avoiding dairy products to manage lactose intolerance. - Monitor liver health with annual check-ups and blood tests as part of a routine physical examination.
== END 2024-07-11 09:55 | disposition home or self-care (01) ==
LOC: HO.HMCC 08:18
PROVIDERS: PCP Internal Medicine; Visit Provider Internal Medicine
DX: E73.9 Lactose intolerance, unspecified (principal); K76.0 Fatty (change of) liver, not elsewhere classified

== ENCOUNTER → 2024-07-11 08:18 | Outpatient (BNVA) | payer OTHER, SELFPAY | PROVIDERS: PCP Internal Medicine; Visit Provider Internal Medicine | DX: Z13.89 Encounter for screening for other disorder (principal) ==